=== PATIENT | male | born 1985 | race Caucasian/White ===

== ENCOUNTER 2024-10-24 10:02 | Observation (INO) ==
[2024-10-24] MEDS: LIDOCAINE 5% 1 PATCH TD STA (10:53)
[2024-10-24] MEDS: KETOROLAC TROMETHAMINE 15 MG/ML VIAL IV STA (10:54)
[2024-10-24] MEDS: CYCLOBENZAPRINE HCL 10 MG TAB PO STA (10:54)
[2024-10-24] MEDS: ACETAMINOPHEN 1,000 MG/100 ML VIAL IV STA (10:54)
[2024-10-24] MEDS: SODIUM CHLORIDE 0.9% 500 ML IV ONE ×2 (10:55→17:05)
[2024-10-24 11:12] LABS: Hematocrit (blood only) 44.8 % (42.0-52.0); Hemoglobin 15.0 g/dl (14.0-18.0); Immature Granulocytes # (auto) 0.03 K/uL (0.01-0.20); Immature Granulocytes % (auto) 0.4 %; Mean Corpuscular Hemoglobin 28.5 pg (25.0-34.0); Mean Corpuscular Volume 85.2 fL (80.0-100.0); Platelet Count 234 K/uL (130-400); RDW Standard Deviation 40.5 fL (36.4-46.3); Red Blood Count 5.26 M/uL (4.70-6.10); White Blood Count 7.55 K/ul (4.8-10.8)
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
[2024-10-24 11:33] LABS: Alanine Aminotransferase 87.0 U/L (7-52); Albumin Globulin Ratio 1.4 (0.9-2); Alkaline Phosphatase 60.0 U/L (34-104); Anion Gap 9.0 (3-11); Bilirubin,Total 0.6 mg/dl (0.2-1.0); Blood Urea Nitrogen 16.0 mg/dl (6-23); Calcium 9.0 mg/dl (8.6-10.3); Carbon Dioxide 25.0 mmol/L (21-32); Chloride 109.0 mmol/L (98-107); Creatinine Clr Calc Pharmacy 117.7 ml/min; Globulin 2.9 gm/dl (2.5-4.0); Glucose 98.0 mg/dl (70-99(Fasting)); Potassium 3.8 mmol/L (3.5-5.1); Sodium 143.0 mmol/L (136-145); Total Protein 7.0 gm/dl (6.0-8.3)
--- NOTE | 2024-10-24 12:08 | XRay Report ---
XR lumbar spine 2-3V CLINICAL HISTORY: severe back pain COMPARISON STUDY: None FINDINGS: No fracture or subluxation. There is moderate degenerative disc disease and mild facet dege neration at the lower lumbar spine. SI joints are unremarkable. IMPRESSION: No fracture seen. ACT 112: Negative or not required by law. Electronically signed by: Osmel Chawla M.D. 10/24/2024 12:07 PM
--- NOTE | 2024-10-24 12:09 | XRay Report ---
XR thoracic spine 3V routine CLINICAL HISTORY: severe back pain COMPARISON STUDY: None FINDINGS: No fracture or subluxation. There are minimal degenerative changes. IMPRESSION: No fracture seen. ACT 112: Negative or not required by law. Electronically signed by: Osmel Chawla M.D. 10/24/2024 12:07 PM
[2024-10-24] MEDS: MoRPHine SULFATE 4 MG/ML 1 ML CARP\\VIAL IV STA (13:08)
[2024-10-24] MEDS: ONDANSETRON INJ 2 MG/ML 2 ML VIAL IV STA (13:08)
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
[2024-10-24] MEDS: IBUPROFEN 600 MG TAB PO SCH (15:19)
[2024-10-24] MEDS: HYDROmorphone INJ 0.5 MG/0.5 ML SYR IV STA (15:19)
[2024-10-24] MEDS: DEXAMETHASONE SOD INJ 4 MG/ML VIAL IV STA (15:19)
[2024-10-24] MEDS ORDERED: HYDROmorphone INJ 1 MG/ML SYRINGE IV PRN (16:07)
[2024-10-24] MEDS ORDERED: MAGNESIUM HYDROXIDE SUSP 30 ML UDC PO PRN (17:50)
[2024-10-24] MEDS ORDERED: ACETAMINOPHEN 325 MG TAB PO PRN (17:50)
[2024-10-24] MEDS ORDERED: ONDANSETRON INJ 2 MG/ML 2 ML VIAL IV PRN (17:50)
[2024-10-24] MEDS ORDERED: POLYETHYLENE (MIRALAX) 17 GM PACK PO PRN (17:50)
[2024-10-24] MEDS: ENOXAPARIN INJ 40 MG/0.4 ML SYR SQ SCH (18:26)
[2024-10-24 18:37] LABS: Appearance Urine Clear (Clear); Bacteria Urine Automated None Seen (None Seen); Epithelial Cell Urine Auto 0-2 /hpf (0-2); Glucose Urine UA Negative (Negative); WBC Urine Automated 0-5 /hpf (0-5)
[2024-10-24] MEDS: METHOCARBAMOL 500 MG TABLET PO SCH (20:57)
[2024-10-24] MEDS: REMOVE LIDODERM PATCH SCH (20:58)
[2024-10-24 21:11] LABS: Amphetamines+Metham, Urine Neg (Neg); MDMA (Ecstacy), Urine Neg (Neg); Marijuana, Urine Neg (Neg)
--- NOTE | 2024-10-24 21:13 | Magnetic Resonance Report ---
Exam(s): MRI T SPINE Without Contrast EXAM: MR Thoracic Spine Without Intravenous Contrast CLINICAL HISTORY: R/O Discitis. TECHNIQUE: Magnetic resonance images of the thoracic spine without intravenous contrast in multiple planes. COMPARISON: No relevant prior studies available. FINDINGS: Vertebrae: The vertebral bodies are intact. No significant abnormal marrow signal identified. No acute fracture. Discs/spinal canal/neural foramina: No acute findings. No significant disc disease. No spinal canal stenosis. Spinal cord: Unremarkable. Normal signal. Soft tissues: No paraspinal soft tissue inflammatory changes noted. IMPRESSION: Negative noncontrast MRI of the thoracic spine. No evidence for inflammatory changes/discitis. Electronically signed by: Daniel Isaacs MD 10/24/24 21:13 PM
--- NOTE | 2024-10-24 21:23 | Magnetic Resonance Report ---
Exam(s): MRI L SPINE Without Contrast EXAM: MR Lumbar Spine Without Intravenous Contrast CLINICAL HISTORY: R/O discitis. TECHNIQUE: Magnetic resonance images of the lumbar spine without intravenous contrast in multiple planes. COMPARISON: No relevant prior studies available. FINDINGS: Vertebrae: See below. Spinal cord: Unremarkable. Normal signal. Soft tissues: Unremarkable. DISCS/SPINAL CANAL/NEURAL FORAMINA: L1-L2: Unremarkable. No significant disc disease. No stenosis. L2-L3: Unremarkable. No significant disc disease. No stenosis. L3-L4: L3-4: Loss of disc height and hydration. No posterior disc protrusion. Facet hypertrophic changes noted. No stenosis. L4-L5: The lumbar vertebral bodies are intact. No abnormal alignment. Incidental Modic signal changes identified and adjacent vertebral bodies at L4-5 and L5-S1. L4-5: Loss of disc height and hydration. Diffuse annular disc bulge. No posterior disc protrusion. Facet hypertrophic changes with mild thickening of the ligamentum flavum. No effacement of the CSF collar. No significant neural foraminal encroachment. No stenosis. L5-S1: Loss of disc height and hydration with diffuse annular disc bulge at L5-S1. No posterior disc protrusion. No central canal stenosis or neural foraminal encroachment. IMPRESSION: Chronic degenerative changes noted, as detailed above. No evidence for acute inflammatory changes/discitis. Electronically signed by: Daniel Isaacs MD 10/24/24 21:22 PM
[2024-10-24 22:22] VITALS: RESP 16; O2SAT 95
[2024-10-25 07:13] LABS: Hematocrit (blood only) 41.7 % (42.0-52.0); Hemoglobin 14.2 g/dl (14.0-18.0); Mean Corpuscular Hemoglobin 29.5 pg (25.0-34.0); Mean Corpuscular Volume 86.5 fL (80.0-100.0); Platelet Count 210 K/uL (130-400); RDW Standard Deviation 40.1 fL (36.4-46.3); Red Blood Count 4.82 M/uL (4.70-6.10); White Blood Count 7.23 K/ul (4.8-10.8)
[2024-10-25 07:14] VITALS: BP 105/63; PULSE 71; TEMP 98.1
[2024-10-25] MEDS: MULTIVITAMIN TAB PO SCH (08:02)
[2024-10-25 08:06] LABS: Anion Gap 8.0 (3-11); Blood Urea Nitrogen 19.0 mg/dl (6-23); Calcium 8.9 mg/dl (8.6-10.3); Carbon Dioxide 22.0 mmol/L (21-32); Chloride 110.0 mmol/L (98-107); Creatinine Clr Calc Pharmacy 151.6 ml/min; Glucose 107.0 mg/dl (70-99(Fasting)); Potassium 4.2 mmol/L (3.5-5.1); Sodium 140.0 mmol/L (136-145)
--- NOTE | 2024-10-25 12:06 | Discharge Summary ---
Date of Service October 25, 2024 Admission HPI Per Admitting Provider Patient is a 39y/o M [employer] with history of chronic low back pain who presented to the ED via EMS due to intractable low back pain and muscle spasms. History obtained from the patient, discussion with ED provider and associated chart review. History of chronic low back pain since 2012. Retired from [employer] around 2012- 2013. No clear evidence of prior inciting injury or direct trauma. Started with acute pain episode this past Monday. Low back, primarily centralized to the spinal column. Does not radiate or travel across the entire low back. No BLE paraesthesias/radiculopathy. Trialed a few doses of ibuprofen ROUSTABOUT without any relief. Also has been using H-Wave device stimulation therapy BID from approximately 1hr each session. States this is intended to help with his lower back spasms. It did seem to help initially on Monday but not as much since then. Woke up this morning with intense low back pain and muscle spasms. Unable to get out of bed or stand/walk because of this. Was able to call EMS. Mentions he had corticosteroid injections into his low back approximately 2-3 weeks ago in [place]. These did provide some relief up until Monday. Prior to Monday, states he was walking 1-3mi every other day. Admission Exam Per Admitting Provider General: Obese M, laying down flat in bed with BLE in flexed positioning, A&Ox3 HEENT: Normocephalic, atraumatic, oropharynx normal Respiratory: Normal respiratory effort, CTAB Cardiovascular: RRR, normal peripheral pulses, no BLE edema Extremities/MSK: Knees in flexed positioning, attempted to lift L foot off bed to begin examining him which caused intense low back muscle spasms -- pt was unable to tolerate any further testing/exam due to pain Neurologic: No overt focal deficits, CN's II-XI not formally tested but appear grossly intact bilaterally Principal Diagnosis Acute on chronic low back pain Discharge Exam General: Obese M, sitting up in chair, A&Ox3 HEENT: Normocephalic, atraumatic, oropharynx normal Respiratory: Normal respiratory effort, CTAB Cardiovascular: RRR, normal peripheral pulses, no BLE edema Extremities/MSK: no tenderness to lower back, no swelling or erythema. power equal BLE. Neurologic: No overt focal deficits, CN's II-XI not formally tested but appear grossly intact bilaterally Discharge Data Allergies Allergy/AdvReac Type Severity Reaction Status Date / Time No Known Allergies Allergy Verified 10/24/24 14:12 Consultations 10/24/24 13:28 ED Decision to Admit Stat Ordered Studies 10/24/24 14:32 MRI Lumbar Spine [MR lumbar spine wo con] Stat MRI Thoracic [MR thoracic spine wo con] Stat Hospital Course (1) Intractable back pain: (2) Acute on chronic low back pain: Plan Patient is a 39y/o M [employer] with history of chronic low back pain who presented to the ED via EMS due to intractable low back pain and muscle spasms. He underwent CT scan and MRI of thoracic and lumbar spine, findings discussed with the patient. Patient was started on ibuprofen and Robaxin, patient reports significant pain control, patient is hemodynamically stable and he feels that he can manage himself at home and would like to go home today. Patient advised to follow-up closely with PCP office for ongoing evaluation/pain management. Patient voiced understanding. Patient advised to set himself up with outpatient physical therapy as it will help with long-term pain management in cases of chronic low back pain, he voiced understanding and said [facility]. Patient is being discharged to home with following instructions at the point of discharge: Follow-up with your primary care physician within a week time and likely you will need labs CBC/CMP/magnesium/phosphorus. As discussed at the bedside, continue to utilize nonpharmacologic measures for your chronic low back pain including outpatient physical therapy, warm compression. You can also utilize [id number] diclofenac gel 3-4 times to your low back as needed for pain. For now upon discharge, utilize ibuprofen 800 mg 3 times a day scheduled for 5 days. While on ibuprofen, take make sure to take your home Protonix daily. You are also being discharged on muscle relaxant Robaxin. Recommend that you follow-up with the PCP in a week for ongoing evaluation/pain management. Take your medications as prescribed. Please make sure that you are able to get your medications today by calling your pharmacy before you leave the hospital so that your treatment continuity is not broken. [facility] Attestation I certify that this patient is under my care and that I, or a physicians general assistant working with me, had a face to-face encounter that meets the home health [id number] encounter requirements with this patient. The encounter with the patient was in whole, or in part, for the following medical condition, which is the primary reason for home health care (list medical condition): I certify that, based on my findings, the following services are medically necessary home health services: My clinical findings support the need for the above services because: Further, I certify that my clinical findings support that this patient is homebound (i.e. absences from home require considerable and taxing effort and are for medical reasons or yazidi services or infrequently or of short duration when for other reasons) because: Certification for Home Health Services: Based on the above findings, I certify that this patient is confined to the home and needs intermittent senior care care, physical therapy and/or speech therapy or continues to need occupational therapy. The patient is under my care, and I have initiated the establishment of the plan of care. This patient will be followed by a physician who will periodically review the plan of care. Total Time Total Time Spent Total Time Spent (In Minutes): 45 Discharge Plan Discharge Items Patient Disposition: Home - Self-Care Reason For Visit: INTRACTABLE BACK PAIN Discharge Diagnosis: Acute on chronic low back pain Activity: As commented below Activity Comment: continue with physical therapy Non-emergency contact: Primary Care Provider Call non-emergency contact if: you have any medication questions and your symptoms worsen Follow-up/Referrals: Nando Longo MD [Primary Care Provider] - Diet: Regular Addtl Attending Provider Instructions: Follow-up with your primary care physician within a week time and likely you will need labs CBC/CMP/magnesium/phosphorus. As discussed at the bedside, continue to utilize nonpharmacologic measures for your chronic low back pain including outpatient physical therapy, warm compression. You can also utilize [id number] diclofenac gel 3-4 times to your low back as needed for pain. For now upon discharge, utilize ibuprofen 800 mg 3 times a day scheduled for 5 days. While on ibuprofen, take make sure to take your home Protonix daily. You are also being discharged on muscle relaxant Robaxin. Recommend that you follow-up with the PCP in a week for ongoing evaluation/pain management. Take your medications as prescribed. Please make sure that you are able to get your medications today by calling your pharmacy before you leave the hospital so that your treatment continuity is not broken. Pending Studies at Discharge: No Stand-Alone Forms: [facility], Smoking Cessation Medications and DC Order Prescriptions: New methocarbamol 500 mg Tablet 500 mg PO TID 14 Days Qty: 42 0RF ibuprofen 600 mg Tablet 600 mg PO Q8H 5 Days Qty: 15 0RF Continued multivitamin Tablet 1 tab PO DAILY clotrimazole 1 % Cream 1 applic TOPICAL BID pantoprazole 40 mg Tablet,Delayed Release (Dr/Ec) 40 mg PO QAM Qty: 30 0RF Held ibuprofen 800 mg tablet 800 mg PO Q8H PRN (Reason: Pain) Hold Instructions: Resume on 10/31/24. Discharge Orders: Discharge Order (Routine); Ordered 10/25/24 Ordered By: Eligio Serra Admission Data Admit Date/Time: 10/24/24 13:33 Attending Provider: Eligio Serra Admit Provider: Yvon Morillo Primary Care Provider: Nando Longo Other Providers: Yvon Morillo; [facility]
[2024-10-29 13:12] LABS: Hydrocodone Urine NEGATIVE ng/mL (<50); Hydromor Urine 417 ng/mL (<50); Noroxycodone Urine NEGATIVE ng/mL (<50); Oxymorph Urine NEGATIVE ng/mL (<50)
== END 2024-10-25 13:45 | disposition home or self-care (01) ==
LOC: 3N 10:02 → ED 10:02 → SUATTDRO 13:33 → 3N 17:21